=== PATIENT | female | born 1955 | race Caucasian/White ===

== ENCOUNTER → 2020-03-19 | Outpatient (CLI) | payer BC ==
[~2020-03-19] MED LIST: ALLEGRA ALLERG180 MG PO; AMOVIG; ASPIRIN325 MG PO; CYCLOBENZAPRINE10 MG PO; FLONASE ALLER15.8 ML; FLUOXETINE HCL40 MG PO; GALZIN25 MG PO; HYDROCODONE-AC1 EAC1 PO; LOSARTAN POTAS100 MG PO; PROTONIX40 MG PO; ROPINIROLE HCL1 MG PO; SAVELLA100 MG PO; SUMATRIPTAN SU100 MG PO; TOPIRAMATE100 MG PO; VITAMIN B-121000 MC3 PO; VITAMIN C500 M4 PO; VITAMIN D21250 MCG PO
== END ==
LOC: KOH-I 15:37
DX: S92.351A Displaced fracture of fifth metatarsal bone, right foot, initial encounter for closed fracture (principal); X58.XXXA Exposure to other specified factors, initial encounter
CPT/HCPCS: 73630

== ENCOUNTER → 2020-03-26 | Outpatient (CLI) | payer BC ==
[2020-03-26 13:57] LABS: HEMOGLOBIN 12.6 gm/dl (12.3-15.3); RED BLOOD COUNT 4.06 M/UL (4.00-5.10); WHITE BLOOD COUNT 5.6 K/UL (4.5-11.0)
[2020-03-26 14:17] LABS: BUN/CREATININE RATIO 16 (0-10)
== END ==
LOC: OPSV2 12:30
PROVIDERS: Podiatrist Foot & Ankle Surgery
DX: Z01.812 Encounter for preprocedural laboratory examination (principal); S92.351A Displaced fracture of fifth metatarsal bone, right foot, initial encounter for closed fracture; X58.XXXA Exposure to other specified factors, initial encounter
CPT/HCPCS: 36415; 80048; 85027

== ENCOUNTER → 2020-03-27 | Day surgery (SDC) | payer BC | END | disposition home or self-care (01) | LOC: OR 06:42 | DX: S92.351A Displaced fracture of fifth metatarsal bone, right foot, initial encounter for closed fracture (principal); I10 Essential (primary) hypertension; J18.9 Pneumonia, unspecified organism; K44.9 Diaphragmatic hernia without obstruction or gangrene; K21.9 Gastro-esophageal reflux disease without esophagitis; M79.7 Fibromyalgia; D64.9 Anemia, unspecified; F41.8 Other specified anxiety disorders; Z90.49 Acquired absence of other specified parts of digestive tract; Z88.6 Allergy status to analgesic agent; Z79.899 Other long term (current) drug therapy | CPT/HCPCS: 73630; 76000; C1713; J0592; J0690; J1100; J1885; J2001; J2250; J2405; J2704; J2795; J3010; J3370; J7120 ==

== ENCOUNTER → 2020-04-14 | Outpatient (CLI) | payer BC | LOC: KOH-I 16:08 | DX: S92.901D Unspecified fracture of right foot, subsequent encounter for fracture with routine healing (principal); X58.XXXD Exposure to other specified factors, subsequent encounter | CPT/HCPCS: 73630 ==

== ENCOUNTER → 2020-04-28 | Outpatient (CLI) | payer BC | LOC: KOH-I 13:43 | DX: S92.351A Displaced fracture of fifth metatarsal bone, right foot, initial encounter for closed fracture (principal); Z98.890 Other specified postprocedural states; X58.XXXA Exposure to other specified factors, initial encounter | CPT/HCPCS: 73630 ==

== ENCOUNTER → 2020-05-19 | Outpatient (CLI) | payer BC | LOC: KOH-I 11:43 | DX: S92.351D Displaced fracture of fifth metatarsal bone, right foot, subsequent encounter for fracture with routine healing (principal); Z98.890 Other specified postprocedural states; X58.XXXD Exposure to other specified factors, subsequent encounter | CPT/HCPCS: 73630 ==

== ENCOUNTER → 2020-07-02 | Outpatient (CLI) | payer BC | LOC: KOH-I 13:20 | DX: S92.353A Displaced fracture of fifth metatarsal bone, unspecified foot, initial encounter for closed fracture (principal) | CPT/HCPCS: 73630 ==

== ENCOUNTER → 2021-11-02 | Outpatient (CLI) | payer BC | LOC: KOH-I 13:47 | DX: S82.832A Other fracture of upper and lower end of left fibula, initial encounter for closed fracture (principal) | CPT/HCPCS: 73610 ==